=== PATIENT | male | born 1955 | race American Indian/Alaskan Native ===

== ENCOUNTER 2020-12-19 12:45 | Outpatient (CLI) | payer MEDICARE ==
--- NOTE | 2020-12-23 10:08 | XRay Report ---
BILATERAL FEET 6 VIEWS INDICATION / CLINICAL INFORMATION: POLYARTHRITIS/INFLAMMATION COMPARISON: None available. FINDINGS: BONES and JOINT(S): No acute fracture or subluxation. No erosions or other significant arthritic moore ges. SOFT TISSUES: Mild atherosclerosis is noted bilaterally. No other significant abnormality. ADDITIONAL FINDINGS: None. IMPRESSION: 1. No acute findings. 2. No significant arthritis of the feet. Signer Name: Clark Alvarenga MD Signed: 12/19/2020 3:32 PM Workstation Name: [id number]
--- NOTE | 2020-12-23 10:08 | XRay Report ---
BILATERAL ANKLES 6 VIEWS INDICATION / CLINICAL INFORMATION: POLYARTHRITIS/INFLAMMATION COMPARISON: None available. FINDINGS: BONES and JOINT(S): No acute fracture or subluxation. No erosions or other significant arthritic moore ges. SOFT TISSUES: There is mild/moderate atherosclerosis bilaterally. No other significant abnormality. ADDITIONAL FINDINGS: None. IMPRESSION: 1. No acute findings. 2. No significant arthritis of the ankles. Signer Name: Clark Alvarenga MD Signed: 12/19/2020 3:33 PM Workstation Name: [email or web address]
--- NOTE | 2020-12-23 10:08 | XRay Report ---
BILATERAL HANDS 5 VIEWS INDICATION / CLINICAL INFORMATION: POLYARTHRITIS/INFLAMMATION COMPARISON: None available. FINDINGS: The patient is unable to extend her left little finger. BONES and JOINT(S): No acute fracture or subluxation. No erosions or other significant arthritic moore ges. SOFT TISSUES: No significant abnormality. ADDITIONAL FINDINGS: None. IMPRESSION: 1. No acute findings. 2. No significant arthritis of the hands. Signer Name: Clark Alvarenga MD Signed: 12/19/2020 3:34 PM Workstation Name: [email or web address]
--- NOTE | 2020-12-23 10:09 | XRay Report ---
CHEST 2 VIEWS INDICATION / CLINICAL INFORMATION: POLYARTHRITIS/INFLAMMATION. COMPARISON: None available. FINDINGS: SUPPORT DEVICES: None. HEART / MEDIASTINUM: No significant abnormality. LUNGS / PLEURA: Scattered bilateral calcified granulomas are seen without other significant pulmonary abnormalities. No significant pleural effusion. No pneumothorax. ADDITIONAL FINDINGS: No significant additional findings. IMPRESSION: 1. No acute abnormality of the chest. Signer Name: Clark Alvarenga MD Signed: 12/19/2020 3:29 PM Workstation Name: [email or web address]
--- NOTE | 2020-12-23 10:09 | XRay Report ---
BILATERAL KNEES 6 VIEWS INDICATION / CLINICAL INFORMATION: POLYARTHRITIS/INFLAMMATION COMPARISON: None available. FINDINGS: BONES and JOINT(S): No acute fracture or subluxation. No erosions or other significant arthritic moore ges. SOFT TISSUES: There is severe bilateral atherosclerosis. No other significant abnormality. ADDITIONAL FINDINGS: None. IMPRESSION: 1. No acute findings. 2. No significant arthritis of the knees. Signer Name: Clark Alvarenga MD Signed: 12/19/2020 3:31 PM Workstation Name: [facility]
== END 2020-12-19 12:46 | disposition home or self-care (01) ==
LOC: SPVIMAG 12:45
PROVIDERS: ATTEND Internal Medicine Rheumatology
DX: M06.4 Inflammatory polyarthropathy (principal); M25.562 Pain in left knee; J98.4 Other disorders of lung
CPT/HCPCS: 71046